=== PATIENT | male | born 1980 | race Caucasian/White ===

== ENCOUNTER 2016-08-19 00:28 | Emergency (ER) | payer OTHER ==
[2016-08-19 01:12] VITALS: BP 157/63; PULSE 78; TEMP 97.5; BMI 33.7
[2016-08-19] MEDS ORDERED: IBUPROFEN 400 MG TABLET (FP) PO ONE ×2 (01:35→01:37)
--- NOTE | 2016-08-19 01:35 | PDOC ---
History of Present Illness - History of Present Illness Initial Comments: 08/19/16 01:36 The patient is a 36 year old male with no significant past medical history who presents to the ED complaining of traumatic left ankle pain that began today. He was at work this evening when he twisted his ankle at the onset of his pain. He now complains of mild ankle swelling. He also complains of pain at his left great toe. No numbness or tingling. No other complaints. <Zenia Edwards - Last Filed: 08/19/16 01:36> - General History Source: Patient <AmeeLeroy - Last Filed: 08/19/16 02:37> - General Chief Complaint: Injury Stated Complaint: LEG INJURY Time Seen by Provider: 08/19/16 01:32 Past History <Zenia Edwards - Last Filed: 08/19/16 01:36> - Psycho/Social/Smoking Cessation Hx Suicidal Ideation: No Smoking History: Never smoked Have you smoked in the past 12 months: No Information on smoking cessation initiated: No Hx Alcohol Use: No Drug/Substance Use Hx: No <Leroy Lubin - Last Filed: 08/19/16 02:37> - Past Medical History Allergies/Adverse Reactions: Allergies Allergy/AdvReac Type Severity Reaction Status Date / Time No Known Allergies Allergy Verified 08/19/16 01:03 Home Medications: Ambulatory Orders Ibuprofen 800 mg PO TID #30 tablet 08/19/16 Review of Systems - Review of Systems Able to Perform ROS?: Yes Comments:: 08/19/16 01:38 GENERAL/CONSTITUTIONAL: No fever or chills. No weakness. HEAD, EYES, EARS, NOSE AND THROAT: No change in vision. No ear pain or discharge. No sore throat CARDIOVASCULAR: No chest pain or shortness of breath. RESPIRATORY: No cough, wheezing, or hemoptysis. GASTROINTESTINAL: No nausea, vomiting, diarrhea or constipation. GENITOURINARY: No dysuria, frequency, or change in urination. MUSCULOSKELETAL: +L ankle pain and swelling. +L great toe pain. No other joint or muscle pain or swelling. No neck or back pain. SKIN: No rash NEUROLOGIC: No headache, vertigo, loss of consciousness, or change in strength/ sensation. ENDOCRINE: No increased thirst. No abnormal weight change. HEMATOLOGIC/LYMPHATIC: No anemia, easy bleeding, or history of blood clots. ALLERGIC/IMMUNOLOGIC: No hives or skin allergy. <Zenia Edwards - Last Filed: 08/19/16 01:36> *Physical Exam - Vital Signs Last Vital Signs Temp Pulse Resp BP Pulse Ox 97.5 F L 78 14 157/63 99 08/19/16 01:04 08/19/16 01:04 08/19/16 01:04 08/19/16 01:04 08/19/16 01:04 - Physical Exam Comments: 08/19/16 01:38 GENERAL: Awake, alert, and fully oriented, in no acute distress HEAD: No signs of trauma EYES: PERRLA, EOMI, sclera anicteric, conjunctiva clear ENT: Auricles normal inspection, hearing grossly normal, nares patent, oropharynx clear without exudates. Moist mucosa NECK: Normal ROM, supple, no lymphadenopathy, JVD, or masses LUNGS: Breath sounds equal, clear to auscultation bilaterally. No wheezes, and no crackles HEART: Regular rate and rhythm, normal S1 and S2, no murmurs, rubs or gallops ABDOMEN: Soft, nontender, normoactive bowel sounds. No guarding, no rebound. No masses EXTREMITIES: LLE: Mild tenderness to palpation on the lateral and medial malleolus with mild swelling, no bony deformity. Otherwise normal inspection. All other extremities: Normal range of motion, no edema. No clubbing or cyanosis. No cords, erythema, or tenderness NEUROLOGICAL: Cranial nerves II through XII grossly intact. Normal speech, gait deferred. SKIN: Warm, Dry, normal turgor, no rashes or lesions noted. <Zenia Edwards - Last Filed: 08/19/16 01:36> - Vital Signs Last Vital Signs Temp Pulse Resp BP Pulse Ox 97.5 F L 78 14 157/63 99 08/19/16 01:04 08/19/16 01:04 08/19/16 01:04 08/19/16 01:04 08/19/16 01:04 <Leroy Lubin - Last Filed: 08/19/16 02:37> Medical Decision Making - Medical Decision Making 08/19/16 02:25 Dr. Lubin: The scribe's documentation has been prepared under my direction and personally reviewed by me in its entirery. I confirm that the note above accurately reflects all work, treatment, procedures, and medical decision making performed by me. Xray showed no fx or dislocation. Pt has his own crutches at this time. Advised to rest, ice, elevate foot as needed. Continue using crutches as needed <Leroy Lubin - Last Filed: 08/19/16 02:37> *DC/Admit/Observation/Transfer - Attestations Scribe Attestion: 08/19/16 01:40 Documentation prepared by Zenia Edwards, acting as auditor medical claims for Leroy Lubin DO. <Zenia Edwards - Last Filed: 08/19/16 01:36> - Discharge Dispostion Admit: No <Leroy Lubin - Last Filed: 08/19/16 02:37> Diagnosis at time of Disposition: Left ankle sprain Qualifiers: Encounter type: initial encounter Involved ligament of ankle: unspecified ligament Qualified Code(s): S93.402A - Sprain of unspecified ligament of left ankle, initial encounter - Discharge Dispostion Disposition: HOME Condition at time of disposition: Stable - Prescriptions Prescriptions: Ibuprofen 800 mg PO TID #30 tablet - Referrals Referrals: Bhanu Ford MD [Staff Physician] - - Patient Instructions Printed Discharge Instructions: DI for Ankle Sprain Additional Instructions: REst, ice, elevate leg as needed for pain relief. Use the crutches you have for non-weight bearing, until you can bear weight on the ankle. - Post Discharge Activity Work/School Note: Back to Work
== END 2016-08-19 02:38 | disposition home or self-care (01) ==
LOC: JER 00:28
DX: S93.402A Sprain of unspecified ligament of left ankle, initial encounter (principal); X50.1XXA Overexertion from prolonged static or awkward postures, initial encounter; Y93.89 Activity, other specified; Y92.520 Airport as the place of occurrence of the external cause; Y99.0 Civilian activity done for income or pay
CPT/HCPCS: 73610-TC-LT; 73630-TC-LT; 99281-25

== ENCOUNTER 2019-01-10 12:25 | Day surgery (SDC) | payer OTHER ==
[2019-01-09 10:10] VITALS: BMI 36.0
[2019-01-10 13:09] LABS: EOS % 3.6 % (0-4.5); HEMATOCRIT 42.2 % (35.4-49); HEMOGLOBIN 14.7 GM/dL (11.7-16.9); LYMPH % 34.8 % (8-40); MCHC 34.9 g/dl (32.0-35.9); MEAN CELL VOLUME 83.1 fl (80-96); MEAN PLT VOLUME 7.6 fl (7.5-11.1); MONO % 8.8 % (3.8-10.2); NEUT % 51.8 % (42.8-82.8); PLATELET COUNT 308 K/MM3 (134-434); RBC 5.08 M/mm3 (4.00-5.60); RDW 13.3 % (11.9-15.9); WHITE BLOOD COUNT 6.4 K/mm3 (4.0-10.0)
[2019-01-10 13:23] LABS: INR 0.95 (0.83-1.09); PROTHROMBIN TIME (PATIENT) 11.2 SEC (9.7-13.0)
[2019-01-10 13:45] VITALS: TEMP 97.8
[2019-01-10 16:57] LABS: BF GLUCOSE (CSF ONLY) 63 mg/dL (40-70); CSF APPEARANCE CLEAR; CSF COLOR COLORLESS; CSF WBC 0
[2019-01-10 17:45] VITALS: BP 118/71; PULSE 62
[2019-01-13 14:07] LABS: ALBUMIN SERUM 4.7 g/dL (3.5-5.5); CSF IGG INDEX 0.8 (0.0-0.7); IGG QN CSF 10.2 mg/dL (0.0-8.6); IGG/ALB RATIO CSF 0.21 (0.00-0.25)
[2019-01-13 16:08] LABS: MYELIN BASIC PROTEIN,CSF 4.5 ng/mL (0.0-1.2)
== END 2019-01-10 17:30 | disposition home or self-care (01) ==
LOC: JRADIR 12:25
PROVIDERS: ATTEND Psychiatry & Neurology Neurology
PROC: 009U3ZX Drainage of Spinal Canal, Percutaneous Approach, Diagnostic (ICD-10-PCS; principal; 2019-01-10)
DX: G35 Multiple sclerosis (principal)
CPT/HCPCS: 36415; 62272; 77002-TC-FY; 82784; 82787; 82945; 83873; 83916; 84157; 85025; 85610